=== PATIENT | male | born 1935 | race Caucasian/White ===

== ENCOUNTER 2018-04-12 13:53 | Emergency (ER) | payer MEDICARE, OTHER ==
[~2018-04-12] VITALS: Ht 182.9 cm; Wt 81.4 kg
[~2018-04-12 13:53] MED LIST: ALPR-624 PO; ASPI-1264 PO; ATOR10TA87 PO; COU5T PO; DILT240C PO; ENAL10TA78 PO; OMEP-84 PO; SOTA80TA73 PO
[2018-04-12] MEDS ORDERED: acetaminophen 325mg tablet PO ONE (14:20)
[2018-04-12] MEDS ORDERED: CefTRIAXone 2gm/D5W 50ml 50 ML IV ONE (14:25)
[2018-04-12] MEDS ORDERED: normal saline 1000ML IV soln IV ONE (14:25)
[2018-04-12 14:43] LABS: BASOPHILS % (AUTO) 0.1 % (0-1); EOSINOPHILS % (AUTO) 0 % (0-6); HEMATOCRIT 32.3 % (42.0-52.0); HEMOGLOBIN 10.8 g/dl (14.0-17.9); LYMPHOCYTES # (AUTO) 6.1 X10'3 (1.1-4.8); LYMPHOCYTES % (AUTO) 70.6 % (21-51); MEAN CORPUSCULAR HEMOGLOBIN 31.3 PG (27.0-31.0); MEAN CORPUSCULAR HGB CONC 33.3 % (33.0-36.5); MEAN CORPUSCULAR VOLUME 94.1 FL (78-98); MEAN PLATELET VOLUME 7.8 FL (7.4-10.4); MONOCYTES # (AUTO) 0.7 X10'3 (0-0.9); MONOCYTES % (AUTO) 8.5 % (2-12); NEUTROPHILS # (AUTO) 1.8 X10'3 (1.8-7.7); NEUTROPHILS % (AUTO) 20.8 % (42-75); PLATELET COUNT 180 X10'3 (140-440); RED BLOOD COUNT 3.43 X10'6 (4.70-6.10); RED CELL DISTRIBUTION WIDTH 12.9 % (11.5-14.5); WHITE BLOOD COUNT 8.6 X10'3 (4.5-11.0)
[2018-04-12 14:54] LABS: PARTIAL THROMBOPLASTIN TIME 36 SECONDS (22-32); PROTHROMBIN TIME 10.3 SECONDS (9.0-12.0)
[2018-04-12 14:59] LABS: ALANINE AMINOTRANSFERASE 84 U/L (12-78); ALBUMIN/GLOBULIN RATIO 0.7 (1.1-1.5); ALKALINE PHOSPHATASE 103 IU/L (46-116); ANION GAP 9 (8-16); ASPARTATE AMINO TRANSFERASE 70 U/L (10-37); BILIRUBIN,TOTAL 1.1 MG/DL (0.1-1.0); BLOOD UREA NITROGEN 17 MG/DL (7-18); CALCIUM 9.3 MG/DL (8.5-10.1); CHLORIDE 96 MMOL/L (99-107); GLUCOSE 119 MG/DL (70-104); MAGNESIUM 1.8 MG/DL (1.5-2.4); POTASSIUM 3.7 MMOL/L (3.5-5.1); SODIUM 133 MMOL/L (135-145); TOTAL PROTEIN 7.5 G/DL (6.4-8.2); eGFR 39 ML/MIN
[2018-04-12 15:39] LABS: COLOR,URINE Dark Yellow (Yellow); GLUCOSE, URINE Negative (Neg); KETONES,URINE Trace mg/dl (Neg); LEUKOCYTE ESTERASE ,URINE Negative (Neg); NITRITES, URINE Negative (Neg); OCCULT BLOOD,URINE Moderate (Neg); PROTEIN,URINE 100 mg/dl (Neg)
[2018-04-12 15:46] LABS: CLARITY,URINE SLIGHTLY CLOUDY (Clear); UA COLLECTION TYPE VOIDED
[2018-04-12 15:48] LABS: AMORPHOUS URATES 2+; BACTERIA,URINE NONE SEEN /HPF (Neg); COARSE GRANULAR CAST 0-3 /LPF (NEGATIVE); SQUAMOUS EPITHELIAL CELL,UR NONE SEEN /LPF (FEW); WBC,URINE 0-4 /HPF (0-4)
[2018-04-12 16:04] LABS: TOTAL CELLS COUNTED 100
[2018-04-12] MEDS ORDERED: AZIT250T PO (16:07)
[2018-04-12] MEDS ORDERED: azithromycin 250mg tablet PO ONE (16:10)
[2018-04-12 16:24] LABS: PLATELET ESTIMATE NORMAL
[2018-04-12 16:25] LABS: POLYCHROMASIA FEW
[2018-04-12 16:26] LABS: SMUDGE CELLS 1+
[2018-04-12 16:35] VITALS: BP 117/61
[2018-04-13] MEDS ORDERED: ALPR-624 PO (21:32)
[2018-04-13] MEDS ORDERED: ENAL10TA78 PO (21:32)
[2018-04-13] MEDS ORDERED: METO25TA6 PO ×2 (21:32→21:34)
[2018-04-13] MEDS ORDERED: FINA5TAB11 PO (21:34)
== END 2018-04-12 16:38 | disposition home or self-care (01) ==
LOC: ER 13:54
DX: R31.29 Other microscopic hematuria (principal); R50.9 Fever, unspecified; I48.91 Unspecified atrial fibrillation; I25.10 Atherosclerotic heart disease of native coronary artery without angina pectoris; E78.00 Pure hypercholesterolemia, unspecified; I25.2 Old myocardial infarction; K21.9 Gastro-esophageal reflux disease without esophagitis; Z98.890 Other specified postprocedural states; Z95.5 Presence of coronary angioplasty implant and graft; Z79.01 Long term (current) use of anticoagulants; Z79.899 Other long term (current) drug therapy; Z79.82 Long term (current) use of aspirin
CPT/HCPCS: 36415; 71045; 80053; 81001; 83605; 83735; 84145; 85025; 85610; 85730; 87040; 93005; 96365; 96366; 99285; J0696; J7030

== ENCOUNTER 2018-04-13 20:07 | Inpatient (IN) | payer MEDICARE, OTHER ==
[~2018-04-13] VITALS: Ht 182.9 cm; Wt 81.4 kg
[~2018-04-13 20:07] MED LIST changes: +AZIT250T PO
[2018-04-13] MEDS ORDERED: levoFLOXACIN-Levaquin 750MG/D5 150 ML IV STA (20:40)
[2018-04-13] MEDS ORDERED: clindamycin-Cleocin 900mg/D5W 50 ML IV ONE (20:55)
[2018-04-13] MEDS ORDERED: temazepam 15mg capsule PO PRN (21:00)
[2018-04-13 21:09] LABS: BASOPHILS % (AUTO) 0.3 % (0-1); EOSINOPHILS % (AUTO) 0.5 % (0-6); HEMATOCRIT 26.3 % (42.0-52.0); LYMPHOCYTES # (AUTO) 5.6 X10'3 (1.1-4.8); LYMPHOCYTES % (AUTO) 71.7 % (21-51); MEAN CORPUSCULAR HEMOGLOBIN 31.9 PG (27.0-31.0); MEAN CORPUSCULAR HGB CONC 34.1 % (33.0-36.5); MEAN CORPUSCULAR VOLUME 93.5 FL (78-98); MEAN PLATELET VOLUME 8.4 FL (7.4-10.4); MONOCYTES % (AUTO) 0.1 % (2-12); NEUTROPHILS # (AUTO) 2.1 X10'3 (1.8-7.7); NEUTROPHILS % (AUTO) 27.4 % (42-75); PLATELET COUNT 166 X10'3 (140-440); RED BLOOD COUNT 2.81 X10'6 (4.70-6.10); RED CELL DISTRIBUTION WIDTH 14.3 % (11.5-14.5); WHITE BLOOD COUNT 7.8 X10'3 (4.5-11.0)
[2018-04-13 21:16] LABS: ALANINE AMINOTRANSFERASE 65 U/L (12-78); ALBUMIN 2.3 G/DL (3.4-5.0); ALBUMIN/GLOBULIN RATIO 0.6 (1.1-1.5); ALKALINE PHOSPHATASE 102 IU/L (46-116); ANION GAP 8 (8-16); ASPARTATE AMINO TRANSFERASE 50 U/L (10-37); BILIRUBIN,TOTAL 0.8 MG/DL (0.1-1.0); BLOOD UREA NITROGEN 22 MG/DL (7-18); BUN/CREATININE RATIO 12.3 (5.4-32.0); CALCIUM 8.7 MG/DL (8.5-10.1); CHLORIDE 100 MMOL/L (99-107); CREATININE 1.79 MG/DL (0.60-1.10); GLUCOSE 105 MG/DL (70-104); POTASSIUM 4.1 MMOL/L (3.5-5.1); SODIUM 132 MMOL/L (135-145); TOTAL CARBON DIOXIDE 24.5 MMOL/L (24-32); TOTAL PROTEIN 6.4 G/DL (6.4-8.2); eGFR 37 ML/MIN
[2018-04-13 21:17] LABS: INR 1.1 INR; PARTIAL THROMBOPLASTIN TIME 37 SECONDS (22-32); PROTHROMBIN TIME 10.9 SECONDS (9.0-12.0)
[2018-04-13] MEDS ORDERED: ALPR-624 PO (21:32)
[2018-04-13] MEDS ORDERED: ENAL10TA78 PO (21:32)
[2018-04-13] MEDS ORDERED: METO25TA6 PO ×2 (21:32→21:34)
[2018-04-13] MEDS ORDERED: FINA5TAB11 PO (21:34)
[2018-04-13] MEDS ORDERED: mag hydrox/Alum hydrox/simeth 30ml oral suspension PO PRN (21:55)
[2018-04-13] MEDS ORDERED: HYDROcodone/acetaminophen 5mg/325mg tablet PO PRN (21:55)
[2018-04-13] MEDS ORDERED: HYDROcodone/acetaminophen 10/325mg tab PO PRN (21:55)
[2018-04-13] MEDS ORDERED: ondansetron/PF 4mg/2ml inj IV PRN (21:55)
[2018-04-13] MEDS ORDERED: magnesium hydroxide 30ml (MOM) UD suspension PO PRN (21:55)
[2018-04-13] MEDS ORDERED: acetaminophen 325mg tablet PO PRN (21:55)
[2018-04-13] MEDS: normal saline 1000ml 1,000 ML IV SCH (22:13)
[2018-04-13] MEDS: enoxaparin 40mg/0.4ml syringe SUBCUT SCH (22:14)
[2018-04-13 22:45] VITALS: BP 106/46
[2018-04-14 02:37] LABS: BASOPHILS % (AUTO) 0.3 % (0-1); EOSINOPHILS % (AUTO) 0.4 % (0-6); HEMATOCRIT 23.3 % (42.0-52.0); HEMOGLOBIN 7.9 g/dl (14.0-17.9); LYMPHOCYTES # (AUTO) 5.8 X10'3 (1.1-4.8); LYMPHOCYTES % (AUTO) 71.7 % (21-51); MEAN CORPUSCULAR HEMOGLOBIN 31.8 PG (27.0-31.0); MEAN CORPUSCULAR HGB CONC 33.9 % (33.0-36.5); MEAN CORPUSCULAR VOLUME 93.9 FL (78-98); MONOCYTES % (AUTO) 0.2 % (2-12); NEUTROPHILS # (AUTO) 2.2 X10'3 (1.8-7.7); NEUTROPHILS % (AUTO) 27.4 % (42-75); PLATELET COUNT 160 X10'3 (140-440); RED BLOOD COUNT 2.48 X10'6 (4.70-6.10); RED CELL DISTRIBUTION WIDTH 14.5 % (11.5-14.5)
[2018-04-14 02:56] LABS: ANION GAP 8 (8-16); BLOOD UREA NITROGEN 20 MG/DL (7-18); BUN/CREATININE RATIO 12.4 (5.4-32.0); CALCIUM 8.4 MG/DL (8.5-10.1); CHLORIDE 100 MMOL/L (99-107); CREATININE 1.61 MG/DL (0.60-1.10); GLUCOSE 106 MG/DL (70-104); MAGNESIUM 1.8 MG/DL (1.5-2.4); POTASSIUM 3.9 MMOL/L (3.5-5.1); SODIUM 132 MMOL/L (135-145); TOTAL CARBON DIOXIDE 23.8 MMOL/L (24-32); eGFR 41 ML/MIN
[2018-04-14 03:58] LABS: TOTAL CELLS COUNTED 100
[2018-04-14 03:59] LABS: PLATELET ESTIMATE NORMAL
[2018-04-14 06:00] VITALS: BP 95/45
[2018-04-14] MEDS: levoFLOXACIN-Levaquin 250mg/D5 50 ML IV SCH (07:14)
[2018-04-14] MEDS: enoxaparin 40mg/0.4ml syringe SUBCUT SCH (07:15)
[2018-04-14 10:00] VITALS: BP 110/53
[2018-04-14] MEDS: normal saline 1000ml 1,000 ML IV SCH (10:56)
[2018-04-14 18:00] VITALS: BP 122/57
[2018-04-14] MEDS: Protein Shake (high protein) 240ml (8oz) cup PO SCH (19:00)
[2018-04-14] MEDS: metoprolol tartrate 25mg tablet PO SCH (20:15)
[2018-04-14] MEDS: lactobacillus rhamnosus 10,000 MMU CELLS/CAPSULE PO SCH (20:15)
[2018-04-14 22:00] VITALS: BP 97/64
[2018-04-15] MEDS: normal saline 1000ml 1,000 ML IV SCH ×2 (03:19→16:08)
[2018-04-15 06:00] VITALS: BP 117/60
[2018-04-15 06:31] LABS: BASOPHILS % (AUTO) 0 % (0-1); EOSINOPHILS % (AUTO) 0.7 % (0-6); HEMATOCRIT 22.6 % (42.0-52.0); HEMOGLOBIN 7.6 g/dl (14.0-17.9); LYMPHOCYTES # (AUTO) 4.7 X10'3 (1.1-4.8); MEAN CORPUSCULAR HEMOGLOBIN 31.4 PG (27.0-31.0); MEAN CORPUSCULAR HGB CONC 33.8 % (33.0-36.5); MEAN PLATELET VOLUME 8.4 FL (7.4-10.4); MONOCYTES % (AUTO) 0.2 % (2-12); NEUTROPHILS # (AUTO) 2.2 X10'3 (1.8-7.7); NEUTROPHILS % (AUTO) 32.1 % (42-75); PLATELET COUNT 176 X10'3 (140-440); RED BLOOD COUNT 2.43 X10'6 (4.70-6.10); RED CELL DISTRIBUTION WIDTH 14.5 % (11.5-14.5)
[2018-04-15 06:45] LABS: ALBUMIN 1.8 G/DL (3.4-5.0); ANION GAP 11 (8-16); BLOOD UREA NITROGEN 17 MG/DL (7-18); BUN/CREATININE RATIO 12.7 (5.4-32.0); CALCIUM 8.5 MG/DL (8.5-10.1); CHLORIDE 103 MMOL/L (99-107); CHOL/HDL RATIO 4.3 (0.00-4.99); CHOLESTEROL 82 MG/DL (0-200); CREATININE 1.34 MG/DL (0.60-1.10); GLUCOSE 113 MG/DL (70-104); HDL CHOLESTEROL 19 MG/DL (35-60); LDL CHOLESTEROL 49 MG/DL (50-100); MAGNESIUM 1.7 MG/DL (1.5-2.4); POTASSIUM 3.8 MMOL/L (3.5-5.1); SODIUM 136 MMOL/L (135-145); TOTAL CARBON DIOXIDE 22.4 MMOL/L (24-32); TRIGLYCERIDES 47 MG/DL (20-135); eGFR 51 ML/MIN
[2018-04-15 07:36] LABS: % IRON SATURATION 14 % (11-46); IRON 15 UG/DL (53-167); TOTAL IRON BINDING CAPACITY 105 UG/DL (259-388)
[2018-04-15] MEDS: Protein Shake (high protein) 240ml (8oz) cup PO SCH ×3 (08:00→18:00)
[2018-04-15] MEDS: metoprolol tartrate 25mg tablet PO SCH ×2 (08:34→20:27)
[2018-04-15] MEDS: lactobacillus rhamnosus 10,000 MMU CELLS/CAPSULE PO SCH ×2 (08:34→20:26)
[2018-04-15] MEDS: enoxaparin 40mg/0.4ml syringe SUBCUT SCH (08:34)
[2018-04-15] MEDS: finasteride 5mg tablet PO SCH (08:34)
[2018-04-15] MEDS: levoFLOXACIN-Levaquin 250mg/D5 50 ML IV SCH (08:34)
[2018-04-15] MEDS ORDERED: iron sucrose complex injection 100 MG in normal saline 100ml IV soln 95 ML IV SCH (08:35)
[2018-04-15 09:14] LABS: PLATELET ESTIMATE NORMAL; SMUDGE CELLS 1+; TOTAL CELLS COUNTED 100
[2018-04-15 10:00] VITALS: BP 130/67
[2018-04-15] MEDS ORDERED: SODIUM FERRIC GLUC COMPLEX IV SCH (11:00)
[2018-04-15] MEDS ORDERED: NORMAL SALINE IV SCH (11:00)
[2018-04-15] MEDS: sodium ferric gluc complex inj 125 MG in normal saline 100ml IV soln 90 ML IV SCH (11:55)
[2018-04-15 18:00] VITALS: BP 129/65
[2018-04-15] MEDS: acetaminophen 325mg tablet PO PRN (20:26)
[2018-04-15 22:00] VITALS: BP 96/45
[2018-04-16 02:00] VITALS: BP 103/55
[2018-04-16] MEDS: normal saline 1000ml 1,000 ML IV SCH ×2 (03:14→16:34)
[2018-04-16 05:31] LABS: BASOPHILS % (AUTO) 0.2 % (0-1); EOSINOPHILS # (AUTO) 0.1 X10'3 (0-0.9); EOSINOPHILS % (AUTO) 1.2 % (0-6); HEMATOCRIT 23.8 % (42.0-52.0); LYMPHOCYTES # (AUTO) 5.5 X10'3 (1.1-4.8); MEAN CORPUSCULAR HEMOGLOBIN 31.5 PG (27.0-31.0); MEAN CORPUSCULAR HGB CONC 33.6 % (33.0-36.5); MEAN CORPUSCULAR VOLUME 93.8 FL (78-98); MEAN PLATELET VOLUME 8.2 FL (7.4-10.4); MONOCYTES % (AUTO) 0.2 % (2-12); NEUTROPHILS % (AUTO) 26.4 % (42-75); PLATELET COUNT 196 X10'3 (140-440); RED BLOOD COUNT 2.54 X10'6 (4.70-6.10); RED CELL DISTRIBUTION WIDTH 14.7 % (11.5-14.5); WHITE BLOOD COUNT 7.6 X10'3 (4.5-11.0)
[2018-04-16 05:43] LABS: ALBUMIN 1.7 G/DL (3.4-5.0); ANION GAP 8 (8-16); BLOOD UREA NITROGEN 14 MG/DL (7-18); BUN/CREATININE RATIO 11.9 (5.4-32.0); CHLORIDE 104 MMOL/L (99-107); CREATININE 1.18 MG/DL (0.60-1.10); GLUCOSE 103 MG/DL (70-104); MAGNESIUM 1.9 MG/DL (1.5-2.4); POTASSIUM 3.9 MMOL/L (3.5-5.1); SODIUM 136 MMOL/L (135-145); TOTAL CARBON DIOXIDE 24.1 MMOL/L (24-32); eGFR 59 ML/MIN
[2018-04-16 06:00] VITALS: BP 106/45
[2018-04-16] MEDS: metoprolol tartrate 25mg tablet PO SCH ×2 (07:30→19:57)
[2018-04-16] MEDS: lactobacillus rhamnosus 10,000 MMU CELLS/CAPSULE PO SCH ×2 (07:32→19:57)
[2018-04-16] MEDS: enoxaparin 40mg/0.4ml syringe SUBCUT SCH (07:32)
[2018-04-16] MEDS: finasteride 5mg tablet PO SCH (07:32)
[2018-04-16] MEDS: levoFLOXACIN-Levaquin 250mg/D5 50 ML IV SCH (07:33)
[2018-04-16] MEDS: Protein Shake (high protein) 240ml (8oz) cup PO SCH ×3 (08:57→18:00)
[2018-04-16] MEDS: sodium ferric gluc complex inj 125 MG in normal saline 100ml IV soln 90 ML IV SCH (09:00)
[2018-04-16 10:24] LABS: TOTAL CELLS COUNTED 100
[2018-04-16 10:25] LABS: PLATELET ESTIMATE NORMAL
[2018-04-16 18:00] VITALS: BP 139/71
[2018-04-16 22:00] VITALS: BP 119/66
[2018-04-17] MEDS: normal saline 1000ml 1,000 ML IV SCH (05:54)
[2018-04-17 06:00] VITALS: BP 124/57
[2018-04-17 06:03] LABS: BASOPHILS % (AUTO) 0.2 % (0-1); EOSINOPHILS # (AUTO) 0.1 X10'3 (0-0.9); HEMATOCRIT 22.8 % (42.0-52.0); HEMOGLOBIN 7.6 g/dl (14.0-17.9); LYMPHOCYTES % (AUTO) 71.7 % (21-51); MEAN CORPUSCULAR HEMOGLOBIN 31.5 PG (27.0-31.0); MEAN CORPUSCULAR HGB CONC 33.5 % (33.0-36.5); MEAN CORPUSCULAR VOLUME 93.8 FL (78-98); MEAN PLATELET VOLUME 7.8 FL (7.4-10.4); MONOCYTES % (AUTO) 0.3 % (2-12); NEUTROPHILS # (AUTO) 1.9 X10'3 (1.8-7.7); NEUTROPHILS % (AUTO) 26.8 % (42-75); PLATELET COUNT 207 X10'3 (140-440); RED BLOOD COUNT 2.43 X10'6 (4.70-6.10); RED CELL DISTRIBUTION WIDTH 14.8 % (11.5-14.5)
[2018-04-17 06:15] LABS: ALBUMIN 1.6 G/DL (3.4-5.0); ANION GAP 8 (8-16); BLOOD UREA NITROGEN 13 MG/DL (7-18); BUN/CREATININE RATIO 10.7 (5.4-32.0); CALCIUM 8.6 MG/DL (8.5-10.1); CHLORIDE 103 MMOL/L (99-107); CREATININE 1.21 MG/DL (0.60-1.10); GLUCOSE 108 MG/DL (70-104); MAGNESIUM 1.7 MG/DL (1.5-2.4); POTASSIUM 3.8 MMOL/L (3.5-5.1); SODIUM 136 MMOL/L (135-145); TOTAL CARBON DIOXIDE 25.1 MMOL/L (24-32); eGFR 58 ML/MIN
[2018-04-17] MEDS: lactobacillus rhamnosus 10,000 MMU CELLS/CAPSULE PO SCH ×2 (07:35→20:00)
[2018-04-17] MEDS: finasteride 5mg tablet PO SCH (07:35)
[2018-04-17] MEDS: metoprolol tartrate 25mg tablet PO SCH ×2 (07:35→20:00)
[2018-04-17] MEDS: enoxaparin 40mg/0.4ml syringe SUBCUT SCH (07:36)
[2018-04-17] MEDS: Protein Shake (high protein) 240ml (8oz) cup PO SCH ×3 (08:36→18:13)
[2018-04-17 09:18] LABS: TOTAL CELLS COUNTED 100
[2018-04-17 09:19] LABS: ANISOCYTOSIS 1+; PLATELET ESTIMATE NORMAL; POLYCHROMASIA 1+; SCHISTOCYTES FEW; SMUDGE CELLS 1+
[2018-04-17] MEDS: sodium ferric gluc complex inj 125 MG in normal saline 100ml IV soln 90 ML IV SCH (09:30)
[2018-04-17 09:43] VITALS: BP 124/89
[2018-04-17] MEDS ORDERED: furosemide 20 MG/2 ML vial IV ONE (10:30)
[2018-04-17] MEDS: levoFLOXACIN 250mg tablet PO SCH (10:35)
[2018-04-17 18:00] VITALS: BP 145/74
[2018-04-17 22:00] VITALS: BP 125/66
[2018-04-18] MEDS: metroNIDAZOLE-Flagyl 500mg/NS 100 ML IV SCH ×3 (00:27→16:00)
[2018-04-18 05:45] LABS: BASOPHILS % (AUTO) 0.2 % (0-1); EOSINOPHILS # (AUTO) 0.1 X10'3 (0-0.9); HEMATOCRIT 25.8 % (42.0-52.0); HEMOGLOBIN 8.6 g/dl (14.0-17.9); LYMPHOCYTES # (AUTO) 5.5 X10'3 (1.1-4.8); LYMPHOCYTES % (AUTO) 72.8 % (21-51); MEAN CORPUSCULAR HEMOGLOBIN 31.1 PG (27.0-31.0); MEAN CORPUSCULAR HGB CONC 33.4 % (33.0-36.5); MEAN CORPUSCULAR VOLUME 93.1 FL (78-98); MEAN PLATELET VOLUME 8.2 FL (7.4-10.4); MONOCYTES % (AUTO) 0.4 % (2-12); NEUTROPHILS # (AUTO) 1.9 X10'3 (1.8-7.7); NEUTROPHILS % (AUTO) 25.6 % (42-75); PLATELET COUNT 220 X10'3 (140-440); RED BLOOD COUNT 2.78 X10'6 (4.70-6.10); RED CELL DISTRIBUTION WIDTH 14.5 % (11.5-14.5); WHITE BLOOD COUNT 7.5 X10'3 (4.5-11.0)
[2018-04-18 05:55] LABS: ALBUMIN 1.7 G/DL (3.4-5.0); ANION GAP 5 (8-16); BLOOD UREA NITROGEN 15 MG/DL (7-18); CHLORIDE 101 MMOL/L (99-107); CREATININE 1.15 MG/DL (0.60-1.10); GLUCOSE 114 MG/DL (70-104); MAGNESIUM 1.6 MG/DL (1.5-2.4); POTASSIUM 3.5 MMOL/L (3.5-5.1); SODIUM 134 MMOL/L (135-145); TOTAL CARBON DIOXIDE 27.9 MMOL/L (24-32); eGFR 61 ML/MIN
[2018-04-18 06:00] VITALS: BP 142/78
[2018-04-18 07:00] VITALS: BP 144/76
[2018-04-18 07:15] LABS: PLATELET ESTIMATE NORMAL; SMUDGE CELLS 1+; TOTAL CELLS COUNTED 100
[2018-04-18 07:16] LABS: ANISOCYTOSIS 1+; HYPOCHROMASIA 1+; POLYCHROMASIA 1+
[2018-04-18] MEDS: lactobacillus rhamnosus 10,000 MMU CELLS/CAPSULE PO SCH (07:24)
[2018-04-18] MEDS: finasteride 5mg tablet PO SCH (07:24)
[2018-04-18] MEDS: enoxaparin 40mg/0.4ml syringe SUBCUT SCH (07:24)
[2018-04-18] MEDS: metoprolol tartrate 25mg tablet PO SCH (07:24)
[2018-04-18] MEDS: Protein Shake (high protein) 240ml (8oz) cup PO SCH ×2 (08:27→13:32)
[2018-04-18] MEDS: sodium ferric gluc complex inj 125 MG in normal saline 100ml IV soln 90 ML IV SCH (08:31)
[2018-04-18] MEDS: acetaminophen 325mg tablet PO PRN (08:39)
[2018-04-18 10:00] VITALS: BP 130/65
[2018-04-18] MEDS: levoFLOXACIN 250mg tablet PO SCH (10:17)
[2018-04-18 11:04] VITALS: BP 120/81
[2018-04-18] MEDS ORDERED: LEVO250T58 PO (15:14)
[2018-04-18] MEDS ORDERED: FERR325T32 PO (15:14)
== END 2018-04-18 17:35 | disposition home or self-care (01) | DRG 682 ==
LOC: ER 20:08 → ED HOLD 21:54 → ORTHO 4S 22:45 → SUR 3N 04-18 10:52
PROVIDERS: ADMIT Hospitalist; ATTEND Family Medicine
DX: N17.9 Acute kidney failure, unspecified (principal); J18.1 Lobar pneumonia, unspecified organism; E43 Unspecified severe protein-calorie malnutrition; E87.1 Hypo-osmolality and hyponatremia; N18.9 Chronic kidney disease, unspecified; D50.9 Iron deficiency anemia, unspecified; D63.8 Anemia in other chronic diseases classified elsewhere; E78.00 Pure hypercholesterolemia, unspecified; D72.820 Lymphocytosis (symptomatic); I25.10 Atherosclerotic heart disease of native coronary artery without angina pectoris; I48.91 Unspecified atrial fibrillation; K21.9 Gastro-esophageal reflux disease without esophagitis; R09.02 Hypoxemia; I25.2 Old myocardial infarction; Z79.82 Long term (current) use of aspirin; Z79.899 Other long term (current) drug therapy; Z85.828 Personal history of other malignant neoplasm of skin; Z68.24 Body mass index [BMI] 24.0-24.9, adult
CPT/HCPCS: 36415; 71045; 71046; 80048; 80053; 80061; 82746; 83540; 83550; 83605; 83735; 84484; 85025; 85610; 85730; 87040; 87070; 93005; 96365; 96366; 96368; 97110; 97116; 97161; 99285; J1650; J1940; J1956; J2916; J3490; J7030

== ENCOUNTER 2018-09-28 10:05 | Inpatient (IN) | payer MEDICARE, OTHER | END 2018-10-01 15:11 | LOC: ER 10:05 → ED HOLD 13:49 → SUR 3N 15:40 | DX: G93.41 Metabolic encephalopathy (principal); J96.90 Respiratory failure, unspecified, unspecified whether with hypoxia or hypercapnia; J18.9 Pneumonia, unspecified organism; N17.9 Acute kidney failure, unspecified; I10 Essential (primary) hypertension; R29.6 Repeated falls; R53.1 Weakness; E86.0 Dehydration ==

== ENCOUNTER 2018-10-07 15:14 | Inpatient (IN) | payer MEDICARE, OTHER | END 2018-10-19 19:17 | disposition home or self-care (01) | LOC: ER 15:14 → ED HOLD 19:26 → SUR 3N 22:30 | DX: A41.9 Sepsis, unspecified organism (principal); J96.01 Acute respiratory failure with hypoxia; J15.9 Unspecified bacterial pneumonia; J10.08 Influenza due to other identified influenza virus with other specified pneumonia; E44.0 Moderate protein-calorie malnutrition; N17.9 Acute kidney failure, unspecified; I12.9 Hypertensive chronic kidney disease with stage 1 through stage 4 chronic kidney disease, or unspecified chronic kidney disease; Y95 Nosocomial condition; N18.3 Chronic kidney disease, stage 3 (moderate); D64.9 Anemia, unspecified; F41.9 Anxiety disorder, unspecified; I25.10 Atherosclerotic heart disease of native coronary artery without angina pectoris; R21 Rash and other nonspecific skin eruption ==

== ENCOUNTER 2020-09-22 14:40 | Emergency (ER) | payer MEDICARE, OTHER ==
[~2020-09-22] VITALS: Ht 182.9 cm; Wt 80.7 kg
[~2020-09-22 14:40] MED LIST changes: +ASCO500C18 PO; +ASPI-1071 PO; -ASPI-1264 PO; -ATOR10TA87 PO; -AZIT250T PO; -COU5T PO; -DILT240C PO; +FERR325T28 PO; +FINA5TAB11 PO; +FURO40TA4 PO; +METO-395 PO; +MULT-436 PO; -OMEP-84 PO; +POTA10TA15 PO; -SOTA80TA73 PO; +[UNRECOGNIZED DRUG - CODE] TP
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
--- NOTE | 2020-09-22 16:00 | NUR ---
mr rubio called for [facility] [phone]
[2020-09-22 16:01] VITALS: BP 124/92
== END 2020-09-22 16:03 | disposition home or self-care (01) ==
LOC: ER 14:40
DX: Z02.89 Encounter for other administrative examinations (principal); I48.91 Unspecified atrial fibrillation; I25.10 Atherosclerotic heart disease of native coronary artery without angina pectoris; E78.00 Pure hypercholesterolemia, unspecified; I25.2 Old myocardial infarction; K21.9 Gastro-esophageal reflux disease without esophagitis; Z87.01 Personal history of pneumonia (recurrent); Z85.9 Personal history of malignant neoplasm, unspecified; Z98.890 Other specified postprocedural states; Z88.1 Allergy status to other antibiotic agents; Z79.82 Long term (current) use of aspirin; Z79.899 Other long term (current) drug therapy; V87.7XXA Person injured in collision between other specified motor vehicles (traffic), initial encounter; Y93.89 Activity, other specified; Y92.89 Other specified places as the place of occurrence of the external cause; Y99.8 Other external cause status
CPT/HCPCS: 93005; 99283

== ENCOUNTER 2021-04-18 07:44 | Day surgery (SDC) | payer MEDICARE, OTHER ==
[~2021-04-18] VITALS: Ht 180.3 cm; Wt 79.5 kg
[2021-04-18 08:10] VITALS: BP 142/78
[2021-04-18] MEDS ORDERED: MIDAZolam 1 MG/ML 5ML VIAL ONE (08:37)
[2021-04-18] MEDS ORDERED: fentaNYL/PF 50MCG/1 ML 2ML syringe ONE (08:37)
[2021-04-18 10:05] VITALS: BP 107/57
[2021-04-18 10:13] VITALS: BP 104/64
[2021-04-18 10:21] VITALS: BP 111/63
[2021-04-18 10:31] VITALS: BP 108/66
[2021-04-18 10:41] VITALS: BP 112/64
== END 2021-04-18 10:59 | disposition home or self-care (01) ==
LOC: GI LAB 07:44
PROVIDERS: ATTEND Internal Medicine Gastroenterology
DX: Z12.11 Encounter for screening for malignant neoplasm of colon (principal); K51.40 Inflammatory polyps of colon without complications; K57.30 Diverticulosis of large intestine without perforation or abscess without bleeding; I48.91 Unspecified atrial fibrillation; Z95.2 Presence of prosthetic heart valve; Z95.1 Presence of aortocoronary bypass graft; Z98.890 Other specified postprocedural states; Z86.010 Personal history of colon polyps; Z79.899 Other long term (current) drug therapy; Z88.8 Allergy status to other drugs, medicaments and biological substances; Z79.82 Long term (current) use of aspirin
CPT/HCPCS: 45380; 88305; G0500; J2250; J3010; J7040; Z7512; 99152; 99153; A4620

== ENCOUNTER 2021-10-02 05:39 | Day surgery (SDC) | payer MEDICARE, OTHER ==
[2021-10-01 16:49] LABS: EOSINOPHILS # (AUTO) 0.1 X10'3 (0-0.9); MEAN PLATELET VOLUME 7.6 FL (7.4-10.4); MONOCYTES # (AUTO) 0.1 X10'3 (0-0.9)
[2021-10-01 16:51] LABS: BASOPHILS # (AUTO) 0.1 X10'3 (0-0.2); BASOPHILS % (AUTO) 0.4 % (0-1); EOSINOPHILS % (AUTO) 0.5 % (0-6); LYMPHOCYTES # (AUTO) 10.9 X10'3 (1.1-4.8); MEAN CORPUSCULAR HEMOGLOBIN 30.4 PG (27.0-31.0); MEAN CORPUSCULAR HGB CONC 32.9 g/dL (33.0-36.5); MEAN CORPUSCULAR VOLUME 92.1 FL (78-98); NEUTROPHILS # (AUTO) 1.7 X10'3 (1.8-7.7); NEUTROPHILS % (AUTO) 13.2 % (42-75); PRE OP HEMATOCRIT 35.1 % (42.0-52.0); PRE OP HEMOGLOBIN 11.6 g/dL (14.0-17.9); PRE OP PLATELET COUNT 269 X10'3 (140-440); RED BLOOD COUNT 3.81 X10'6 (4.70-6.10)
[2021-10-01 17:14] LABS: PRE OP PROTIME 9.9 SECONDS (9.0-12.0)
[2021-10-01 17:16] LABS: ALBUMIN 3.8 G/DL (3.4-5.0); ALBUMIN/GLOBULIN RATIO 1.3 (1.1-1.5); ALKALINE PHOSPHATASE 71 IU/L (46-116); BLOOD UREA NITROGEN 22 MG/DL (7-18); BUN/CREATININE RATIO 17.7 (5.4-32.0); CALCIUM 9.5 MG/DL (8.5-10.1); CHLORIDE 103 MMOL/L (99-107); CREATININE 1.24 MG/DL (0.60-1.10); PRE OP ALT 21 U/L (30-65); PRE OP ANION GAP 10 (8-16); PRE OP AST 13 U/L (10-37); PRE OP BILIRUB, TOTAL 0.4 MG/DL (0.0-1.0); PRE OP GLUCOSE 99 MG/DL (70-104); PRE OP POTASSIUM 4.2 MMOL/L (3.4-5.1); PRE OP SODIUM 139 MMOL/L (135-145); TOTAL CARBON DIOXIDE 26.4 MMOL/L (24-32); TOTAL PROTEIN 6.8 G/DL (6.4-8.2); eGFR 55 ML/MIN
[2021-10-01 19:00] LABS: TOTAL CELLS COUNTED 100
[2021-10-01 19:01] LABS: PLATELET ESTIMATE NORMAL
[2021-10-01 19:03] LABS: SMUDGE CELLS 1+
[2021-10-01 19:06] LABS: LYMPHOCYTES % (AUTO) 84.9 % (21-51)
[~2021-10-02] VITALS: Ht 182.9 cm; Wt 77.2 kg
[2021-10-02] VITALS (15 sets, daily range): BP systolic 126–138; BP diastolic 63–83
[~2021-10-02 05:39] MED LIST changes: -FERR325T28 PO; -FURO40TA4 PO; +INDOCYANINE GREEN 25 MG/10 ML VIAL IV ONE; -METO-395 PO; -POTA10TA15 PO; -[UNRECOGNIZED DRUG - CODE] TP; +cefazolin/dext.iso 2gm/50ml IV ONE; +famotidine 20mg tablet PO ONE; +ringers solution, lacted 1,000 ML IV SCH
[2021-10-02] MEDS ORDERED: BUPIVAcaine/PF 2.5mg/ml (0.25%) 10ml vial ONE (06:41)
[2021-10-02] MEDS ORDERED: LIDOcaine 1% 30ml preserv. free vial ONE (06:41)
[2021-10-02] MEDS ORDERED: fentaNYL/PF 50MCG/1 ML 2ML syringe ONE (07:39)
[2021-10-02] MEDS ORDERED: propofol inj 20 ML IV ONE (07:39)
[2021-10-02] MEDS ORDERED: rocuronium 10mg/ml inj IV ONE (07:39)
[2021-10-02] MEDS ORDERED: dexamethasone sod phosphate 4mg/ml inj. ONE (07:54)
[2021-10-02] MEDS ORDERED: morphine 4 MG/ML inj SYRINge IV PRN (08:20)
[2021-10-02] MEDS ORDERED: proCHLORperazine 10 MG/2 ml inj IV PRN (08:20)
[2021-10-02] MEDS ORDERED: morphine 2 MG/ML inj. syringe IV PRN (08:20)
[2021-10-02] MEDS ORDERED: ondansetron/PF 4mg/2ml inj IV PRN (08:20)
[2021-10-02] MEDS ORDERED: ringers solution, lacted 1,000 ML IV SCH (08:20)
[2021-10-02] MEDS ORDERED: meperidine/PF 25mg/ml syringe IV PRN ×3 (08:20)
[2021-10-02] MEDS ORDERED: ondansetron/PF 4mg/2ml inj ONE (08:49)
[2021-10-02] MEDS ORDERED: sugammadex 200mg/2ml injection IV ONE (08:51)
--- NOTE | 2021-10-02 09:14 | NUR ---
Received from OR via [facility], accompanied by Anesthesiologist DR DAVIS and report given by Anesthesiologist. PT DROWSY, NO S/S OF DISTRESS/DISCOMFORT. ABDOMEN W/4 LAP SITES W/BANDAIDS CDI. Addendum: 10/02/21 at 0930 by Darya Campbell RN Amended: Links added.
[2021-10-02] MEDS ORDERED: HYDROcodone/acetaminophen 5mg/325mg tablet PO PRN (09:25)
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
== END 2021-10-02 12:04 | disposition home or self-care (01) ==
LOC: PRE-OP 05:39 → PAS 12:04
PROVIDERS: ATTEND Surgery
DX: K80.00 Calculus of gallbladder with acute cholecystitis without obstruction (principal); I10 Essential (primary) hypertension; F41.9 Anxiety disorder, unspecified; N40.0 Benign prostatic hyperplasia without lower urinary tract symptoms; I25.10 Atherosclerotic heart disease of native coronary artery without angina pectoris; Z95.1 Presence of aortocoronary bypass graft; Z79.899 Other long term (current) drug therapy; Z79.82 Long term (current) use of aspirin; Z20.822 Contact with and (suspected) exposure to COVID-19; Z79.01 Long term (current) use of anticoagulants; Z82.49 Family history of ischemic heart disease and other diseases of the circulatory system
CPT/HCPCS: 36415; 47563; 80053; 82948; 85025; 85610; 85730; 87635; 93005; C9803; J0690; J1100; J2405; J2704; J3010; J3490; J7030; J7120; Z7506; Z7508; Z7512; 85007; 88304; A4215; A4618; A7000

== ENCOUNTER 2022-01-27 11:21 | Emergency (ER) | payer MEDICARE, OTHER ==
[~2022-01-27] VITALS: Ht 180.3 cm; Wt 80.5 kg
[~2022-01-27 11:21] MED LIST changes: -INDOCYANINE GREEN 25 MG/10 ML VIAL IV ONE; -cefazolin/dext.iso 2gm/50ml IV ONE; -famotidine 20mg tablet PO ONE; -ringers solution, lacted 1,000 ML IV SCH
[2022-01-27 12:49] VITALS: BP 16/61
== END 2022-01-27 14:15 | disposition home or self-care (01) ==
LOC: ER 11:22
DX: R51.9 Headache, unspecified (principal); M25.531 Pain in right wrist; M25.511 Pain in right shoulder; M25.552 Pain in left hip; I48.91 Unspecified atrial fibrillation; I25.10 Atherosclerotic heart disease of native coronary artery without angina pectoris; E78.00 Pure hypercholesterolemia, unspecified; I10 Essential (primary) hypertension; I25.2 Old myocardial infarction; K21.9 Gastro-esophageal reflux disease without esophagitis; Z87.01 Personal history of pneumonia (recurrent); Z85.9 Personal history of malignant neoplasm, unspecified; Z98.890 Other specified postprocedural states; Z88.1 Allergy status to other antibiotic agents; Z79.82 Long term (current) use of aspirin; Z79.899 Other long term (current) drug therapy; W19.XXXA Unspecified fall, initial encounter; Y93.89 Activity, other specified; Y92.89 Other specified places as the place of occurrence of the external cause; Y99.8 Other external cause status
CPT/HCPCS: 70450; 72125; 73110; 73130; 99284

== ENCOUNTER 2022-12-18 06:11 | Day surgery (SDC) | payer MEDICARE, OTHER ==
[2022-12-16 12:17] LABS: CLARITY,URINE CLEAR (Clear); COLOR,URINE YELLOW (Yellow); GLUCOSE, URINE NEGATIVE (Neg); KETONES,URINE NEGATIVE (Neg); LEUKOCYTE ESTERASE ,URINE NEGATIVE (Neg); NITRITES, URINE NEGATIVE (Neg); OCCULT BLOOD,URINE MODERATE (Neg); PH,URINE 5.5 (4.8-8.0); PROTEIN,URINE NEGATIVE (Neg); UROBILINOGEN,URINE 0.2 E.U/dL (0.2-1.0)
[2022-12-16 12:18] LABS: BASOPHILS # (AUTO) 0.1 X10'3 (0-0.2); MEAN CORPUSCULAR HEMOGLOBIN 31.7 PG (27.0-31.0); PRE OP HEMOGLOBIN 11.2 g/dL (14.0-17.9); PRE OP PLATELET COUNT 145 X10'3 (140-440)
[2022-12-16 12:20] LABS: BASOPHILS % (AUTO) 0.3 % (0-1); EOSINOPHILS # (AUTO) 0.1 X10'3 (0-0.9); EOSINOPHILS % (AUTO) 0.3 % (0-6); LYMPHOCYTES # (AUTO) 17.9 X10'3 (1.1-4.8); LYMPHOCYTES % (AUTO) 91.9 % (21-51); MEAN CORPUSCULAR HGB CONC 33.1 g/dL (33.0-36.5); MEAN CORPUSCULAR VOLUME 95.6 FL (78-98); MEAN PLATELET VOLUME 7.9 FL (7.4-10.4); MONOCYTES # (AUTO) 0.2 X10'3 (0-0.9); MONOCYTES % (AUTO) 0.9 % (2-12); NEUTROPHILS # (AUTO) 1.3 X10'3 (1.8-7.7); NEUTROPHILS % (AUTO) 6.6 % (42-75); PRE OP HEMATOCRIT 33.8 % (42.0-52.0); RED BLOOD COUNT 3.54 X10'6 (4.70-6.10); RED CELL DISTRIBUTION WIDTH 14.8 % (11.5-14.5)
[2022-12-16 12:22] LABS: UA COLLECTION TYPE CLN CATCH MIDSTREAM
[2022-12-16 12:23] LABS: WBC,URINE 0-4 /HPF (0-4)
[2022-12-16 12:24] LABS: BACTERIA,URINE NONE SEEN /HPF (Neg); MUCUS STRANDS NONE SEEN /LPF (Neg); SQUAMOUS EPITHELIAL CELL,UR FEW /LPF (FEW)
[2022-12-16 12:27] LABS: ALBUMIN 3.8 G/DL (3.4-5.0); ALBUMIN/GLOBULIN RATIO 1.2 (1.1-1.5); ALKALINE PHOSPHATASE 57 IU/L (46-116); BLOOD UREA NITROGEN 22 MG/DL (7-18); BUN/CREATININE RATIO 15.6 (10.0-20.0); CHLORIDE 107 MMOL/L (99-107); CREATININE 1.41 MG/DL (0.60-1.10); PRE OP ALT 25 U/L (30-65); PRE OP ANION GAP 7 (8-16); PRE OP AST 22 U/L (10-37); PRE OP BILIRUB, TOTAL 0.5 MG/DL (0.0-1.0); PRE OP GLUCOSE 104 MG/DL (70-104); PRE OP POTASSIUM 4.7 MMOL/L (3.4-5.1); PRE OP SODIUM 142 MMOL/L (135-145); TOTAL CARBON DIOXIDE 28.1 MMOL/L (24-32); TOTAL PROTEIN 7.1 G/DL (6.4-8.2); eGFR 48 ML/MIN
[2022-12-16 13:02] LABS: PLATELET ESTIMATE NORMAL; TOTAL CELLS COUNTED 100
[2022-12-16 13:04] LABS: SMUDGE CELLS 2+
[2022-12-18] VITALS (7 sets, daily range): BP systolic 123–138; BP diastolic 64–80
[~2022-12-18] VITALS: Ht 167.6 cm; Wt 81.6 kg
[~2022-12-18 06:11] MED LIST changes: +IRON PO; -MULT-436 PO; +cefazolin 2gm/D5W 100mL 100 ML IV ONE; +famotidine 20mg tablet PO ONE; +normal saline 1000ml 500 ML IV SCH
[2022-12-18] MEDS ORDERED: BUPIVAcaine/PF 2.5 mg/ml (0.25%) 30ml vial ONE (06:47)
[2022-12-18] MEDS ORDERED: LIDOcaine 1% 30ml preserv. free vial ONE (06:47)
[2022-12-18] MEDS ORDERED: midazolam 1 mg/ML 2ml injection ONE (09:25)
[2022-12-18] MEDS ORDERED: desflurane 240ml liquid inh. IH ONE (09:25)
[2022-12-18] MEDS ORDERED: ondansetron/PF 4mg/2ml inj ONE (09:25)
[2022-12-18] MEDS ORDERED: fentaNYL/PF 50MCG/1 ML 2ML syringe ONE (09:25)
[2022-12-18] MEDS ORDERED: propofol inj 20 ML IV ONE (09:36)
[2022-12-18] MEDS ORDERED: LIDOcaine 2% (20mg/ml) 5ml vial ONE (09:37)
[2022-12-18] MEDS ORDERED: morphine 4 MG/ML inj SYRINge IV PRN (09:45)
[2022-12-18] MEDS ORDERED: meperidine/PF 25mg/ml syringe IV PRN ×3 (09:45)
[2022-12-18] MEDS ORDERED: morphine 2 MG/ML inj. syringe IV PRN (09:45)
[2022-12-18] MEDS ORDERED: proCHLORperazine 10 MG/2 ml inj IV PRN (09:45)
[2022-12-18] MEDS ORDERED: ondansetron/PF 4mg/2ml inj IV PRN (09:45)
[2022-12-18] MEDS ORDERED: ringers solution, lacted 1,000 ML IV SCH (09:45)
[2022-12-18] MEDS ORDERED: dexamethasone sod phosphate 4mg/ml inj. ONE (10:12)
--- NOTE | 2022-12-18 10:18 | NUR ---
Received from OR via [facility], accompanied by Anesthesiologist and report given by ZEE Anesthesiologist. PATIENT WAKING UP, NO S/S OF PAIN, V/S WNL, 20G TO RIGHT HAND, RIGHT NECK DRESSING C/D/I. Addendum: 12/18/22 at 1059 by Bassam Valencia RN Amended: Links added.
--- NOTE | 2022-12-18 11:08 | NUR ---
ALL DISCHARGE CRITERIA HAS BEEN MET. VSS, PAIN AT A TOLERABLE LEVEL, ABLE TO SAFELY AMBULATE AND TRANSFER SELF. IV TAKEN OUT WITHOUT ANY COMPLICATIONS. ALL DISCHARGE INSTRUCTIONS COVERED WITH PATIENT AND ALL QUESTIONS ANSWERED. PATIENT TAKEN OUT VIA WHEELCHAIR WITH ALL BELONGINGS TO PERSONAL VEHICLE WHERE FAMILY DROVE PATIENT HOME. Addendum: 12/18/22 at 1120 by Bassam Valencia RN Amended: Links added.
== END 2022-12-18 11:08 | disposition home or self-care (01) ==
LOC: PAS 06:11
PROVIDERS: ATTEND Surgery
DX: R59.0 Localized enlarged lymph nodes (principal); C83.01 Small cell B-cell lymphoma, lymph nodes of head, face, and neck; I10 Essential (primary) hypertension; I48.91 Unspecified atrial fibrillation; K21.9 Gastro-esophageal reflux disease without esophagitis; F41.9 Anxiety disorder, unspecified; N40.0 Benign prostatic hyperplasia without lower urinary tract symptoms; Z88.8 Allergy status to other drugs, medicaments and biological substances; Z87.01 Personal history of pneumonia (recurrent); Z86.73 Personal history of transient ischemic attack (TIA), and cerebral infarction without residual deficits; Z85.828 Personal history of other malignant neoplasm of skin; Z79.899 Other long term (current) drug therapy; Z79.82 Long term (current) use of aspirin; Z98.890 Other specified postprocedural states; Z90.49 Acquired absence of other specified parts of digestive tract; Z98.41 Cataract extraction status, right eye; Z98.42 Cataract extraction status, left eye; Z85.6 Personal history of leukemia
CPT/HCPCS: 36415; 38510; 80053; 81001; 82948; 85025; 88184; 88185; 88305; 88341; 88342; J0690; J1100; J2250; J2405; J2704; J3010; J3490; J7030; J7120; Z7506; Z7512; 85007; A4215; A4618; A6449; A7000

== ENCOUNTER 2024-02-13 07:19 | Inpatient (IN) | payer MEDICARE, OTHER ==
[~2024-02-13] VITALS: Ht 177.8 cm; Wt 76.4 kg
[2024-02-13] VITALS (10 sets, daily range): BP systolic 108–142; BP diastolic 44–69; PULSE 63–84; RESP 15–18; TEMP 97–98.6; O2SAT 93–100
[~2024-02-13 07:19] MED LIST changes: -cefazolin 2gm/D5W 100mL 100 ML IV ONE; -famotidine 20mg tablet PO ONE; -normal saline 1000ml 500 ML IV SCH
[2024-02-13 07:49] LABS: BASOPHILS % (AUTO) 1.2 % (0-1); EOSINOPHILS % (AUTO) 1.8 % (0-6); HEMATOCRIT 33.3 % (42.0-52.0); HEMOGLOBIN 11.1 g/dl (14.0-17.9); LYMPHOCYTES # (AUTO) 0.6 X10'3 (1.1-4.8); LYMPHOCYTES % (AUTO) 23.3 % (21-51); MEAN CORPUSCULAR HEMOGLOBIN 29.6 PG (27.0-31.0); MEAN CORPUSCULAR HGB CONC 33.4 g/dL (33.0-36.5); MEAN CORPUSCULAR VOLUME 88.6 FL (78-98); MEAN PLATELET VOLUME 7.2 FL (7.4-10.4); MONOCYTES # (AUTO) 0.5 X10'3 (0-0.9); MONOCYTES % (AUTO) 18.1 % (2-12); NEUTROPHILS # (AUTO) 1.5 X10'3 (1.8-7.7); NEUTROPHILS % (AUTO) 55.6 % (42-75); PLATELET COUNT 177 X10'3 (140-440); RED BLOOD COUNT 3.76 X10'6 (4.70-6.10); RED CELL DISTRIBUTION WIDTH 15.9 % (11.5-14.5); WHITE BLOOD COUNT 2.7 X10'3 (4.5-11.0)
[2024-02-13 08:14] LABS: ALBUMIN 3.3 G/DL (3.4-5.0); ANION GAP 9 (8-16); BLOOD UREA NITROGEN 23 MG/DL (7-18); CALCIUM 10.1 MG/DL (8.5-10.1); CHLORIDE 107 MMOL/L (99-107); CREATININE 1.21 MG/DL (0.60-1.10); GLUCOSE 101 MG/DL (70-104); POTASSIUM 3.8 MMOL/L (3.5-5.1); PRO BRAIN NATRIURETIC PEPTIDE 530 PG/ML (0-450); SODIUM 143 MMOL/L (135-145); TOTAL CARBON DIOXIDE 27.2 MMOL/L (24-32); eCRCL 44 ML/MIN; eGFR 57 ML/MIN
[2024-02-13 08:46] LABS: ANISOCYTOSIS 1+; PLATELET ESTIMATE NORMAL; TOTAL CELLS COUNTED 100
[2024-02-13 08:47] LABS: ELLIPTOCYTES 1+; SCHISTOCYTES FEW; TEAR DROP CELLS 1+
[2024-02-13] MEDS: nitroGLYCERIN 0.4mg/hour patch TD ONE (08:51)
[2024-02-13] MEDS: aspirin 81mg tab.chew PO ONE (09:00)
[2024-02-13] MEDS ORDERED: normal saline 500ml IV soln 500 ML IV ONE (10:15)
[2024-02-13] MEDS ORDERED: acetaminophen 325mg tablet PO PRN ×2 (10:35)
[2024-02-13] MEDS ORDERED: potassium Cl 40MEQ/1/2NS 520ml 520 ML IV PRN (10:35)
[2024-02-13] MEDS ORDERED: magnesium 2GM in 50ml NS 50 ML IV PRN (10:35)
[2024-02-13] MEDS ORDERED: magnesium Cl slow-release 64mg tablet PO PRN (10:35)
[2024-02-13] MEDS ORDERED: potassium Cl 20 mEq SR tablet PO PRN ×2 (10:35)
[2024-02-13] MEDS ORDERED: magnesium 4gm in 100ml NS 100 ML IV PRN (10:35)
[2024-02-13] MEDS ORDERED: morphine 2 MG/ML inj. syringe IV PRN (10:35)
[2024-02-13] MEDS ORDERED: ondansetron/PF 4mg/2ml inj IV PRN (10:35)
[2024-02-13] MEDS: normal saline 1000ml 1,000 ML IV SCH (11:27)
[2024-02-13 11:32] LABS: D-DIMER 1.34 MG/L FEU (0-0.50)
[2024-02-13] MEDS ORDERED: aminophylline inj. 0 ML IV ONE (13:43)
[2024-02-13] MEDS: regadenoson 0.4mg/5ml syringe IV ONE (13:44)
[2024-02-13] MEDS ORDERED: ENAL-78 PO (15:01)
[2024-02-13] MEDS ORDERED: ALPR0.5T8 PO (15:01)
[2024-02-13] MEDS ORDERED: HYDR-3964 PO (15:01)
[2024-02-13] MEDS ORDERED: ALLO300T8 PO (15:01)
[2024-02-13] MEDS ORDERED: ASPI-611 PO (15:01)
[2024-02-13] MEDS ORDERED: iron PO (15:04)
[2024-02-13] MEDS ORDERED: iohexol 350MG/ML 100ml bottle IV ONE (19:59)
[2024-02-13] MEDS: heparin, porcine 5000 units/ml vial SQ SCH (20:03)
[2024-02-14] MEDS: HYDROcodone/acetaminophen 5mg/325mg tablet PO PRN (02:05)
[2024-02-14 02:27] VITALS: BP 128/62; PULSE 68; RESP 14; TEMP 96.7; O2SAT 99
[2024-02-14 05:51] LABS: BASOPHILS % (AUTO) 0.6 % (0-1); EOSINOPHILS % (AUTO) 0.8 % (0-6); HEMATOCRIT 33.8 % (42.0-52.0); HEMOGLOBIN 11.3 g/dl (14.0-17.9); LYMPHOCYTES # (AUTO) 0.4 X10'3 (1.1-4.8); LYMPHOCYTES % (AUTO) 10.5 % (21-51); MEAN CORPUSCULAR HEMOGLOBIN 29.2 PG (27.0-31.0); MEAN CORPUSCULAR HGB CONC 33.3 g/dL (33.0-36.5); MEAN CORPUSCULAR VOLUME 87.5 FL (78-98); MEAN PLATELET VOLUME 8.1 FL (7.4-10.4); MONOCYTES # (AUTO) 0.5 X10'3 (0-0.9); MONOCYTES % (AUTO) 13.4 % (2-12); NEUTROPHILS % (AUTO) 74.7 % (42-75); PLATELET COUNT 178 X10'3 (140-440); RED BLOOD COUNT 3.86 X10'6 (4.70-6.10); RED CELL DISTRIBUTION WIDTH 15.8 % (11.5-14.5)
[2024-02-14 06:00] VITALS: BP 147/86; PULSE 60; RESP 14; TEMP 98.1; O2SAT 96
[2024-02-14 06:27] LABS: ALANINE AMINOTRANSFERASE 23 U/L (12-78); ALBUMIN 3.1 G/DL (3.4-5.0); ALKALINE PHOSPHATASE 50 IU/L (46-116); ANION GAP 10 (8-16); ASPARTATE AMINO TRANSFERASE 14 U/L (10-37); BILIRUBIN,TOTAL 0.7 MG/DL (0.1-1.0); BLOOD UREA NITROGEN 21 MG/DL (7-18); BUN/CREATININE RATIO 17.6 (10.0-20.0); CALCIUM 9.8 MG/DL (8.5-10.1); CHLORIDE 106 MMOL/L (99-107); CREATININE 1.19 MG/DL (0.60-1.10); GLUCOSE 101 MG/DL (70-104); POTASSIUM 3.9 MMOL/L (3.5-5.1); SODIUM 140 MMOL/L (135-145); TOTAL CARBON DIOXIDE 23.8 MMOL/L (24-32); TOTAL PROTEIN 6.2 G/DL (6.4-8.2); eCRCL 45 ML/MIN; eGFR 58 ML/MIN
[2024-02-14 08:17] VITALS: BP_SYST 156; PULSE 80
[2024-02-14] MEDS: lisinopril 20mg tablet PO SCH (08:17)
[2024-02-14] MEDS: aspirin 81mg tab.chew PO SCH (08:17)
[2024-02-14] MEDS: allopurinol 300 MG tablet PO SCH (08:17)
[2024-02-14] MEDS: IRON 65 MG PO SCH (08:18)
[2024-02-14 10:31] LABS: C DIFF ANTIGEN NEGATIVE (NEGATIVE); C DIFF SPECIMEN=DIARRHEA? ACCEPTABLE; C DIFFICILE TOXINS A&B NEGATIVE (Neg)
[2024-02-14] MEDS: ALPRAZolam 0.25mg tablet PO ONE (10:58)
== END 2024-02-14 12:28 | disposition home health service (06) | DRG 206 ==
LOC: ER 07:19 → ED HOLD 10:37 → PCU 3S 15:21
PROVIDERS: ADMIT Internal Medicine; ATTEND Internal Medicine
PROC: 4A02XM4 Measurement of Cardiac Total Activity, External Approach (ICD-10-PCS; principal; 2024-02-13)
PROC: 3E033HZ Introduction of Radioactive Substance into Peripheral Vein, Percutaneous Approach (ICD-10-PCS; 2024-02-13)
DX: M94.0 Chondrocostal junction syndrome [Tietze] (principal); C34.91 Malignant neoplasm of unspecified part of right bronchus or lung; I48.20 Chronic atrial fibrillation, unspecified; I25.10 Atherosclerotic heart disease of native coronary artery without angina pectoris; I12.9 Hypertensive chronic kidney disease with stage 1 through stage 4 chronic kidney disease, or unspecified chronic kidney disease; K21.9 Gastro-esophageal reflux disease without esophagitis; N18.30 Chronic kidney disease, stage 3 unspecified; E78.00 Pure hypercholesterolemia, unspecified; I25.2 Old myocardial infarction; Z85.118 Personal history of other malignant neoplasm of bronchus and lung; Z88.6 Allergy status to analgesic agent; Z88.8 Allergy status to other drugs, medicaments and biological substances; Z95.0 Presence of cardiac pacemaker
CPT/HCPCS: 36415; 71045; 71275; 78452; 80048; 80053; 83880; 84484; 85007; 85025; 85379; 87324; 87449; 93005; 93017; 93306; 99285; A6212; A6223; A6402; A6446; A6449; A9500; G0378; J0280; J1644; J2785; J7030; Q9967

== ENCOUNTER 2024-12-11 20:22 | Emergency (ER) | payer MEDICARE, OTHER ==
[~2024-12-11] VITALS: Ht 177.8 cm; Wt 75.9 kg
[~2024-12-11 20:22] MED LIST changes: +ALLO300T8 PO; -ALPR-624 PO; +ALPR0.5T8 PO; -ASCO500C18 PO; -ASPI-1071 PO; +ASPI-611 PO; +ENAL-78 PO; -ENAL10TA78 PO; -FINA5TAB11 PO; +HYDR-3964 PO; -IRON PO; +iron PO
[2024-12-11] MEDS: LIDOcaine 1% 30ml preserv. free vial SQ STA (21:21)
[2024-12-11 22:52] VITALS: BP 108/92; PULSE 66; RESP 16; TEMP 98.5; O2SAT 98
== END 2024-12-11 22:55 | disposition home or self-care (01) ==
LOC: ER 20:22
DX: S52.502D Unspecified fracture of the lower end of left radius, subsequent encounter for closed fracture with routine healing (principal); E78.00 Pure hypercholesterolemia, unspecified; I10 Essential (primary) hypertension; I25.10 Atherosclerotic heart disease of native coronary artery without angina pectoris; I48.91 Unspecified atrial fibrillation; W18.39XA Other fall on same level, initial encounter; Y93.89 Activity, other specified; Y92.89 Other specified places as the place of occurrence of the external cause; Y99.8 Other external cause status
CPT/HCPCS: 25605; 73080; 73110; 99284; A4565; A6446; J2003